=== PATIENT | male | born 1995 | race Two or more races ===

== ENCOUNTER 2023-03-23 21:40 | Emergency (ER) | payer OTHER ==
[~2023-03-23] VITALS: Ht 188 cm; Wt 104.5 kg
[2023-03-23] MEDS ORDERED: IBUP1TAB5 PO (23:56)
[2023-03-24] MEDS ORDERED: ONDANSETRON ODT 4 MG TAB PO ONE
[2023-03-24] MEDS ORDERED: MECLIZINE HCL 25 MG TAB PO ONE
[2023-03-24] MEDS ORDERED: IBUPROFEN 600 MG TAB PO ONE
[2023-03-24 00:33] VITALS: BP 138/86; PULSE 93; RESP 16; TEMP 98.6; O2SAT 97
== END 2023-03-24 00:36 | disposition home or self-care (01) ==
LOC: ER 21:40
DX: S02.2XXA Fracture of nasal bones, initial encounter for closed fracture (principal); S00.03XA Contusion of scalp, initial encounter; W22.8XXA Striking against or struck by other objects, initial encounter; Y93.89 Activity, other specified; Y92.89 Other specified places as the place of occurrence of the external cause; Y99.8 Other external cause status
CPT/HCPCS: 70450; 99284; Q0162